=== PATIENT | female | born 2000 | race African-American/Black ===

== ENCOUNTER 2020-04-19 21:58 | Emergency (ER) | payer MEDICAID ==
--- NOTE | 2020-04-19 22:52 | RADIOLOGY REPORT (SQ) ---
EXAM DESCRIPTION: XR SHOULDER 2 OR MORE VIEWS COMPLETED DATE/TME: 04/19/2020 22:27 CLINICAL HISTORY: 19 years, Female, pain after fall COMPARISON: None. NUMBER OF VIEWS: 3 TECHNIQUE: 3 views of the left shoulder were obtained. LIMITATIONS: None. FINDINGS: No bone or joint abnormality is seen. Left lung is clear. IMPRESSION: Negative study copyright 2011 [employer]- All Rights Reserved
--- NOTE | 2020-04-19 23:09 | ER Document Report ---
ED Extremity Problem, Upper - General Chief Complaint: Shoulder Injury Stated Complaint: LEFT ARM INJURY/FALL Time Seen by Provider: 04/19/20 22:15 Primary Care Provider: FERNY DALTON MD [Primary Care Provider] - Follow up as needed Mode of Arrival: Ambulatory Information source: Patient Notes: Patient is a 19-year-old female comes emergency room complaint of left shoulder pain. Patient states last night she was doing some deep cleaning in her house and she slipped falling and attempted to catch herself against 1 of those "cat boxes". Patient states that is jammed her arm into her shoulder and she felt that little pop or crack. This occurred last evening. All day today it started to bother her to where she is having difficult time lifting her shoulder. She states her boyfriend felt that it felt like it popped back into place. Patient is here to have it evaluated. She denies any other medical problems. TRAVEL OUTSIDE OF THE [place] IN LAST 30 DAYS: No - HPI Patient complains to provider of: Injury, Pain, Shoulder Onset: Yesterday Recent injury: Yes Where: Home Quality of pain: Achy, Sharp Severity of pain: Constant Pain Level: 3 Arm and Shoulder (Left): 1 - Area of pain Associated symptoms: denies: Back pain, Hurts to breathe, Nausea, Neck pain, Short of breath, Tingling Exacerbated by: Movement Relieved by: Rest Similar symptoms previously: No Recently seen / treated by doctor: No - Related Data Allergies/Adverse Reactions: No Known Allergies Allergy (Unverified 12/04/11 00:18) Past Medical History - General Information source: Patient - Social History Smoking Status: Never Smoker Cigarette use (# per day): No Chew tobacco use (# tins/day): No Smoking Education Provided: No Frequency of alcohol use: None Drug Abuse: None Lives with: Family Family History: Reviewed & Not Pertinent Neurological Medical History: Reports: Hx Migraine - Immunizations Immunizations up to date: Yes Review of Systems - Review of Systems Constitutional: No symptoms reported EENT: No symptoms reported Cardiovascular: No symptoms reported Respiratory: No symptoms reported Gastrointestinal: No symptoms reported Genitourinary: No symptoms reported Female Genitourinary: No symptoms reported Musculoskeletal: See HPI, Joint pain Skin: No symptoms reported Hematologic/Lymphatic: No symptoms reported Neurological/Psychological: No symptoms reported -: Yes All other systems reviewed and negative Physical Exam - Vital signs Vitals: Temp Pulse Resp BP Pulse Ox 97.9 F 117 H 20 151/90 H 98 04/19/20 22:03 04/19/20 22:03 04/19/20 22:03 04/19/20 22:03 04/19/20 22:03 Interpretation: Hypertensive, Tachycardic - Notes Notes: PHYSICAL EXAMINATION: GENERAL: Patient is a well-nourished well-developed 19-year-old female who is borderline morbidly obese. HEAD: Atraumatic, normocephalic. NECK: Normal range of motion, supple without lymphadenopathy LUNGS: Breath sounds clear to auscultation bilaterally and equal. No wheezes rales or rhonchi. HEART: Regular rate and rhythm without murmurs Musculoskeletal: Examination patient's area concern is her left shoulder. Patient is able to raise her shoulder but with some minor difficulty especially in a forward extension. Palpation of the shoulder itself shows tenderness in the anterior portion of the shoulder around the rotator cuff area. There is no tenderness across the acromioclavicular space. There is no deformity felt on palpation. Patient has good lower extremity strength against resistance no sign of biceps tear. Patient has good vascular examination with good cap refill in nailbeds of the left hand. 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 NEUROLOGICAL: Normal speech, normal gait. Normal sensory, motor exams PSYCH: Normal mood, normal affect. SKIN: Warm, Dry, normal turgor, no rashes or lesions noted. No discolorations are noted on examination of the left shoulder. Course - Re-evaluation Re-evalutation: 04/19/20 23:08 Working diagnosis is going to be left shoulder strain, Rotator cuff derangement we will place patient in sling and put her on some muscle relaxers and will give her the name the orthopedist to follow-up with. - Vital Signs Vital signs: Temp Pulse Resp BP Pulse Ox 97.9 F 117 H 20 151/90 H 98 04/19/20 22:03 04/19/20 22:03 04/19/20 22:03 04/19/20 22:03 04/19/20 22:03 - Laboratory Results Critical Laboratory Results Reviewed: No Critical Results - Radiology Results Critical Radiology Results Reviewed: No Critical Results Procedures - Immobilization Left Shoulder Time completed: 23:09 Pre-Proc Neuro Vasc Exam: Normal Immobilizer type: Sling Performed by: PCT Post-Proc Neuro Vasc Exam: Normal Alignment checked and good: Yes Discharge - Discharge Clinical Impression: Strain of left shoulder Qualifiers: Encounter type: initial encounter Qualified Code(s): S46.912A - Strain of unspecified muscle, fascia and tendon at shoulder and upper arm level, left arm, initial encounter Injury of left rotator cuff Qualifiers: Encounter type: initial encounter Qualified Code(s): S46.002A - Unspecified injury of muscle(s) and tendon(s) of the rotator cuff of left shoulder, initial encounter Condition: Stable Disposition: HOME, SELF-CARE Instructions: Rotator Cuff Injury ([facility]), Shoulder Injury ([facility]) Additional Instructions: Use the sling for the next 3 to 4 days to give your shoulder some rest. Ice to the shoulder 3 times a day wherever it hurts primarily on the anterior portion of the lower portion of the shoulder. Ibuprofen or Tylenol for pain and discomfort. I am giving you some muscle relaxers which should help relieve that tension in the area. But as we discussed that this is a rotator cuff you will need to see an orthopedist. I am giving you the name of the orthopedic on-call tonight you can contact their office to see if they can accommodate you. Should you have any concerns or problems you can return to ER for reevaluation. Prescriptions: Methocarbamol [Robaxin 500 mg Tablet] 500 mg PO TID PRN #21 tablet PRN Reason: Forms: Elevated Blood Pressure, Return to Work Referrals: FERNY DALTON MD [Primary Care Provider] - Follow up as needed ABI TORIBIO DO [ACTIVE STAFF] - Follow up as needed
[2020-04-20 01:13] VITALS: BP 141/94
== END 2020-04-19 23:35 | disposition home or self-care (01) ==
LOC: ER 21:58
DX: S46.912A Strain of unspecified muscle, fascia and tendon at shoulder and upper arm level, left arm, initial encounter (principal); M25.512 Pain in left shoulder; W01.198A Fall on same level from slipping, tripping and stumbling with subsequent striking against other object, initial encounter; Y93.E9 Activity, other interior property and clothing maintenance; Y92.009 Unspecified place in unspecified non-institutional (private) residence as the place of occurrence of the external cause
CPT/HCPCS: 99284